=== PATIENT | male | born 1940 | race African-American/Black ===

== ENCOUNTER 2021-10-02 22:37 | Observation (INO) ==
[2021-10-02] MEDS ORDERED: ONDANSETRON 4 MG/2 ML VIAL IV STA (23:12)
[2021-10-02 23:35] LABS: Basophils % 0.3 % (0.0-0.8); Eosinophils % 0.7 % (0.00-10.9); Hematocrit 33.1 VOL% (42.0-52.0); Hemoglobin 10.7 GM/DL (14.0-18.0); Immature Granulocytes % 0.3 %; Immature Granulocytes Absolute 0.02 #; Lymphocytes % 16.2 % (21.2-54.2); Mean Corpuscular HGB Conc 32.3 GM/DL (32-36); Mean Corpuscular Volume 91.7 FL (87-102); Mean Platelet Volume 9.9 FL (9.6-12.0); Monocytes # 0.6 10*3/uL (0.11-0.8); Monocytes % 10.7 % (1.7-12.7); Neutrophils % 71.8 % (38.7-73.9); Platelet Count 172 T/CUMM (130-400); Red Blood Count 3.61 MC/CUMM (3.8-5.5); White Blood Count 5.9 T/CUMM (4-12)
[2021-10-03 00:06] LABS: Alanine Aminotransferase 23 U/L (16-61); Albumin 3.6 G/DL (3.4-5.0); Alkaline Phosphatase 59 U/L (45-117); Aspartate Amino Transferase 16 U/L (0-37); Bilirubin,Total < 0.39 MG/DL (0.20-1.00); Blood Urea Nitrogen 17 MG/DL (7-18); Calcium 8.8 MG/DL (8.5-10.1); Carbon Dioxide 25 MMOL/L (21-32); Chloride 112 MMOL/L (98-107); Glucose 179 MG/DL (74-106); Potassium 4.2 MMOL/L (3.5-5.1); Sodium 143 MMOL/L (136-145); Thyroid Stimulating Hormone 0.429 uIU/ml (0.358-3.74); Total Protein 6.6 G/DL (6.4-8.2)
[2021-10-03] MEDS ORDERED: MAGNESIUM SULF RIDER 2 GM/50 ML PREMIX IV STA (00:16)
[2021-10-03] MEDS ORDERED: hydrALAZINE 20 MG/1 ML VIAL IV PRN (02:16)
[2021-10-03] MEDS ORDERED: DEXTROSE 10% 250 ML BAG IV PRN (02:16)
[2021-10-03] MEDS ORDERED: GLUCAGON 1 MG VIAL IM PRN (02:16)
[2021-10-03] MEDS ORDERED: ONDANSETRON 4 MG/2 ML VIAL IV PRN (02:16)
[2021-10-03] MEDS ORDERED: LACTATED RINGERS 1,000 ML IV SCH (03:00)
[2021-10-03 06:51] LABS: Calcium 9.2 MG/DL (8.5-10.1); Osmolality,Calculated 283.4 MOS/KG (273-304); Potassium 4.5 MMOL/L (3.5-5.1)
[2021-10-03] MEDS: INSULIN LISPRO 100 UNIT/ML SUBCUT SCH ×4 (08:33→22:37)
[2021-10-03] MEDS: PANTOPRAZOLE 40 MG TABLET PO SCH (08:33)
[2021-10-03] MEDS: allopurinoL 300 MG TABLET PO SCH (11:38)
[2021-10-03] MEDS ORDERED: BENZOCAINE/MENTHOL LOZENGE 18/BOX PO PRN (12:05)
[2021-10-03] MEDS: ENOXAPARIN 40 MG/0.4 ML SYRINGE SUBCUT SCH (20:57)
[2021-10-03 23:12] LABS: Bacteria,Urine Few /HPF (Few); Mucus,Urine Occasional /LPF (Occasional); RBC,Urine 2 /HPF (0-4); Squamous Epithelial Cell,Urine Occasional /HPF (0-10)
[2021-10-03 23:13] LABS: Glucose,Urine (UA) 100 mg/dL (Negative); Ketones,Urine Negative (Negative); Protein,Urine 30 mg/dL (Negative); Urine Appearance Clear (Clear); Urine Color Light Yellow (Yellow)
[2021-10-03 23:14] LABS: Bilirubin,Urine Negative (Negative); Blood, Urine Small mg/dL (Negative); Nitrite,Urine Negative (Negative); Urine Urobilinogen 0.2 eU/dL (<2.0)
[2021-10-04] MEDS: ACETAMINOPHEN 325 MG TABLET PO PRN ×2 (04:56→14:40)
[2021-10-04 05:14] LABS: Basophils % 0.3 % (0.0-0.8); Eosinophils % 0.6 % (0.00-10.9); Hematocrit 32.7 VOL% (42.0-52.0); Hemoglobin 10.7 GM/DL (14.0-18.0); Lymphocytes # 1.6 10*3/uL (1.4-4.0); Mean Corpuscular HGB Conc 32.7 GM/DL (32-36); Mean Corpuscular Volume 92.1 FL (87-102); Monocytes # 0.8 10*3/uL (0.11-0.8); Monocytes % 11.5 % (1.7-12.7); Neutrophils % 64.2 % (38.7-73.9); Platelet Count 173 T/CUMM (130-400); Red Blood Count 3.55 MC/CUMM (3.8-5.5); Red Cell Distribution Width 13.7 % (9.3-17.3); White Blood Count 6.8 T/CUMM (4-12)
[2021-10-04 05:47] LABS: Calcium 9.1 MG/DL (8.5-10.1); Osmolality,Calculated 283.4 MOS/KG (273-304); Potassium 4.5 MMOL/L (3.5-5.1)
[2021-10-04 06:08] LABS: Band Neutrophils 3 % (0-10); Eosinophils 2 % (0-10); Lymphocytes 14 % (20-55)
[2021-10-04 06:09] LABS: Platelet Estimate Adequate
[2021-10-04] MEDS ORDERED: MAGNESIUM SULF RIDER 4 GM/100 ML PREMIX IV ONE (07:14)
[2021-10-04] MEDS: INSULIN LISPRO 100 UNIT/ML SUBCUT SCH ×3 (09:25→16:27)
[2021-10-04] MEDS: allopurinoL 300 MG TABLET PO SCH (09:25)
[2021-10-04] MEDS: PANTOPRAZOLE 40 MG TABLET PO SCH (09:25)
[2021-10-04] MEDS ORDERED: MELATONIN 3 MG TABLET PO PRN (13:08)
[2021-10-04] MEDS: cefTRIAXone 1,000 MG in SODIUM CHLORIDE 0.9% 100 ML IV SCH (13:52)
[2021-10-04] MEDS: AZITHROMYCIN INJ 500 MG in SODIUM CHLORIDE 0.9% 250 ML IV SCH (14:30)
[2021-10-04] MEDS: SIMVASTATIN 10 MG TABLET PO SCH (21:44)
[2021-10-04] MEDS: ENOXAPARIN 40 MG/0.4 ML SYRINGE SUBCUT SCH (21:45)
[2021-10-04] MEDS: FAMOTIDINE 20 MG TABLET PO SCH (21:45)
[2021-10-04] MEDS: ASCORBIC ACID 500 MG TABLET PO SCH (21:45)
[2021-10-04] MEDS: INSULIN GLARGINE 100 UNIT/ML SUBCUT SCH (21:45)
[2021-10-05] MEDS: INSULIN LISPRO 100 UNIT/ML SUBCUT SCH ×5 (01:00→21:18)
[2021-10-05 05:00] LABS: Basophils % 0.3 % (0.0-0.8); Eosinophils # 0.1 10*3/uL (0.0-0.87); Eosinophils % 1.9 % (0.00-10.9); Hematocrit 32.9 VOL% (42.0-52.0); Hemoglobin 10.7 GM/DL (14.0-18.0); Immature Granulocytes % 0.3 %; Immature Granulocytes Absolute 0.02 #; Lymphocytes # 1.6 10*3/uL (1.4-4.0); Lymphocytes % 26.7 % (21.2-54.2); Mean Corpuscular HGB Conc 32.5 GM/DL (32-36); Mean Corpuscular Volume 91.4 FL (87-102); Mean Platelet Volume 10.2 FL (9.6-12.0); Monocytes # 0.6 10*3/uL (0.11-0.8); Monocytes % 10.6 % (1.7-12.7); Neutrophils % 60.2 % (38.7-73.9); Platelet Count 173 T/CUMM (130-400); Red Cell Distribution Width 13.6 % (9.3-17.3); White Blood Count 5.9 T/CUMM (4-12)
[2021-10-05 05:28] LABS: Band Neutrophils 2 % (0-10); Eosinophils 2 % (0-10); Lymphocytes 32 % (20-55); Total Cells Counted 100
[2021-10-05 05:29] LABS: Platelet Estimate Adequate
[2021-10-05 05:42] LABS: Osmolality,Calculated 282.3 MOS/KG (273-304); Potassium 3.9 MMOL/L (3.5-5.1)
[2021-10-05 06:33] LABS: Sedimentation Rate-Westergren 72 MM/HR (0-20)
[2021-10-05] MEDS: CHOLECALCIFEROL 1,000 UNIT TABLET PO SCH (09:03)
[2021-10-05] MEDS: FAMOTIDINE 20 MG TABLET PO SCH ×2 (09:03→21:19)
[2021-10-05] MEDS: DEXAMETHASONE 4 MG/1 ML VIAL IV SCH (09:03)
[2021-10-05] MEDS: CETIRIZINE 10 MG TABLET PO SCH (09:03)
[2021-10-05] MEDS: allopurinoL 300 MG TABLET PO SCH (09:03)
[2021-10-05] MEDS: ZINC GLUCONATE 50 MG TABLET PO SCH (09:03)
[2021-10-05] MEDS: PANTOPRAZOLE 40 MG TABLET PO SCH (09:03)
[2021-10-05] MEDS: ASCORBIC ACID 500 MG TABLET PO SCH ×2 (09:04→21:19)
[2021-10-05] MEDS: cefTRIAXone 1,000 MG in SODIUM CHLORIDE 0.9% 100 ML IV SCH (11:33)
[2021-10-05] MEDS: AZITHROMYCIN INJ 500 MG in SODIUM CHLORIDE 0.9% 250 ML IV SCH (12:13)
[2021-10-05] MEDS: SODIUM CHLORIDE 0.9% 1,000 ML IV SCH (16:32)
[2021-10-05] MEDS: INSULIN GLARGINE 100 UNIT/ML SUBCUT SCH (21:17)
[2021-10-05] MEDS: ENOXAPARIN 40 MG/0.4 ML SYRINGE SUBCUT SCH (21:18)
[2021-10-05] MEDS: SIMVASTATIN 10 MG TABLET PO SCH (21:19)
[2021-10-06 05:49] LABS: Basophils % 0.2 % (0.0-0.8); Hematocrit 30.4 VOL% (42.0-52.0); Immature Granulocytes % 0.5 %; Immature Granulocytes Absolute 0.03 #; Lymphocytes # 1.1 10*3/uL (1.4-4.0); Lymphocytes % 17.8 % (21.2-54.2); Mean Corpuscular HGB Conc 32.9 GM/DL (32-36); Mean Corpuscular Volume 90.5 FL (87-102); Mean Platelet Volume 10.5 FL (9.6-12.0); Monocytes # 0.6 10*3/uL (0.11-0.8); Neutrophils % 72.5 % (38.7-73.9); Platelet Count 182 T/CUMM (130-400); Red Blood Count 3.36 MC/CUMM (3.8-5.5); Red Cell Distribution Width 13.5 % (9.3-17.3); White Blood Count 6.1 T/CUMM (4-12)
[2021-10-06 06:06] LABS: Calcium 9.4 MG/DL (8.5-10.1); Osmolality,Calculated 289.4 MOS/KG (273-304); Potassium 4.6 MMOL/L (3.5-5.1)
[2021-10-06 06:11] LABS: Lymphocytes 24 % (20-55); Platelet Estimate Adequate; Total Cells Counted 100
[2021-10-06 07:58] VITALS: BP 149/79
[2021-10-06] MEDS: allopurinoL 300 MG TABLET PO SCH (08:27)
[2021-10-06] MEDS: INSULIN LISPRO 100 UNIT/ML SUBCUT SCH (08:27)
[2021-10-06] MEDS: ZINC GLUCONATE 50 MG TABLET PO SCH (08:27)
[2021-10-06] MEDS: ASCORBIC ACID 500 MG TABLET PO SCH (08:28)
[2021-10-06] MEDS: CETIRIZINE 10 MG TABLET PO SCH (08:28)
[2021-10-06] MEDS: PANTOPRAZOLE 40 MG TABLET PO SCH (08:28)
[2021-10-06] MEDS: CHOLECALCIFEROL 1,000 UNIT TABLET PO SCH (08:28)
[2021-10-06] MEDS: FAMOTIDINE 20 MG TABLET PO SCH (08:28)
[2021-10-06] MEDS: DEXAMETHASONE 4 MG/1 ML VIAL IV SCH (08:29)
[2021-10-06] MEDS: SODIUM CHLORIDE 0.9% 1,000 ML IV SCH (10:30)
[2021-10-08 15:06] LABS: Specimen Source NASAL
== END 2021-10-06 12:20 | disposition home health service (06) ==
LOC: EDUNIT# → EDBD → N.ED 22:37 → N.EDINP 22:37 → SUATTDRO 10-03 02:16 → N.3E 10-03 03:00
PROVIDERS: ADMIT Internal Medicine; ATTEND Internal Medicine